=== PATIENT | female | born 1945 | race Caucasian/White ===

== ENCOUNTER → 2016-11-16 | Outpatient (CLI) | payer OTHER | LOC: CIMAGING 09:38 | PROVIDERS: ATTEND Family Medicine | DX: Z12.31 Encounter for screening mammogram for malignant neoplasm of breast (principal) | CPT/HCPCS: G0202 ==

== ENCOUNTER → 2017-05-09 | Outpatient (CLI) | payer OTHER | LOC: CIMAGING 12:42 | PROVIDERS: ATTEND Family Medicine | DX: Z13.828 Encounter for screening for other musculoskeletal disorder (principal); M72.2 Plantar fascial fibromatosis | CPT/HCPCS: 73630-PO ==

== ENCOUNTER → 2018-01-06 | Outpatient (CLI) | payer OTHER | LOC: CIMAGING 10:45 | PROVIDERS: ATTEND Family Medicine | DX: Z12.31 Encounter for screening mammogram for malignant neoplasm of breast (principal) ==